=== PATIENT | male | born 1985 | race African-American/Black ===

== ENCOUNTER 2019-02-02 18:47 | Inpatient (IN) | payer OTHER ==
[2019-02-02 19:07] VITALS: BMI 29.8
--- NOTE | 2019-02-02 20:51 | HP ---
COWS - Scale Resting Pulse: 0= [place] 80 or Below Sweatin= Chills/Flushing Restless Observation: 1= Difficult to Sit Still Pupil Size: 0= Normal to Room Light Bone or Joint Aches: 1= Mild Discomfort Runny Nose/ Eye Tearin= Runny Nose/Eyes GI Upset > 30mins: 2= Nausea/Diarrhea Tremor Observation: 0= None Yawning Observation: 1= 1-2x During Session Anxiety or Irritability: 2=Irritable/Anxious Goose Flesh Skin: 0=Smooth Skin COWS Score: 10 CIWA Score - Admission Criteria [facility]ASAS Guidelines: Admission for Medically Managed Detox: Requires at least one of the followin. CIWA greater than 12 2. Seizures within the past 24 hours 3. Delirium tremens within the past 24 hours 4. Hallucinations within the past 24 hours 5. Acute intervention needed for co occurring medical disorder 6. Acute intervention needed for co occurring psychiatric disorder 7. Severe withdrawal that cannot be handled at a lower level of care (continued vomiting, continued diarrhea, abnormal vital signs) requiring intravenous medication and/or fluids 8. Admission [facility] Chief Complaint: C/O WITHDRAWAL SX'S Allergies/Adverse Reactions: Allergies Allergy/AdvReac Type Severity Reaction Status Date / Time No Known Allergies Allergy Verified 02/02/19 18:48 History of Present Illness: HERE FOR HEROIN DETOX. CLIENT WAS REFERRED BY [facility] AFTER PRESENTING THERE 1 DAY AGO FOR MENTAL HEALTH ISSUES. HE HAS SINCE BEEN CLEARED AND REFERRED HERE FOR DETOX. CLIENT REPORTS DAILY USE OF HEROIN. LAST USE 1 DAY AGO. PRESENTS NOW WITH C/O WITHDRAWAL SXS'.HX/O DRUG OVERDOSE X3. + HX/O SEIZURES R/T HEAD INJURY. LAST EPISODE 10/2018 ON [facility]. HE IS NOT COMPLIANT WITH HIS MEDICATION TO INCLUDE MENTAL HEALTH MEDS. DENIES IVDU, SI/HI, . REPORTS MOST RECENT CLEAN TIME 1 YEAR WHILE INCARCERATED. RELAPSING 10/2018. LIVES WITH FAMILY, UNEMPLOYED , DENIES LEGALS Exam Limitations: No Limitations - Ebola screening Have you traveled outside of the country in the last 21 days: No (N) Have you had contact with anyone from an Ebola affected area: No Do you have a fever: No - Review of Systems Constitutional: Chills, Night Sweats, Changes in sleep EENT: reports: Blurred Vision (CHRONIC/ USES EYE GLASSES), Nose Congestion, Dental Problems (MISSING TOOTH), Throat Pain (SORE), Other (HORSENESS) Respiratory: reports: Shortness of Breath (HX/O ASTHMA) Cardiac: reports: No Symptoms Reported GI: reports: Nausea, Abdominal cramping : reports: No Symptoms Reported Musculoskeletal: reports: Back Pain (CHRONIC, SCIATICA) Integumentary: reports: No Symptoms Reported Neuro: reports: Headache, Numbness, Seizure Endocrine: reports: No Symptoms Reported Hematology: reports: No Symptoms Reported Psychiatric: reports: Orientated x3, Agitated (IRRITBALE), Anxious, Depressed Other Systems: Reviewed and Negative Patient History - Patient Medical History Hx Anemia: No Hx Asthma: Yes Hx Chronic Obstructive Pulmonary Disease (COPD): No Hx Cancer: No Hx Cardiac Disorders: No Hx Congestive Heart Failure: No Hx Hypertension: No Hx Hypercholesterolemia: No Hx Pacemaker: No HX Cerebrovascular Accident: No Hx Seizures: Yes (NON COMPLIANT WITH MEDS) Hx Dementia: No Hx Diabetes: No Hx Gastrointestinal Disorders: Yes (PEPTIC ULCERS) Hx Liver Disease: No Hx Genitourinary Disorders: No Hx Sexually Transmitted Disorders: No Hx Renal Disease (ESRD): No Hx Thyroid Disease: No Hx Human Immunodeficiency Virus (HIV): No Hx Hepatitis C: No Hx Depression: Yes (NON COMPLIANT WITH MEDS) Hx Suicide Attempt: No Hx Bipolar Disorder: Yes (NON COMPLIANT WITH) Hx Schizophrenia: No Other Medical History: DENIES - Patient Surgical History Past Surgical History: Yes Hx Appendectomy: Yes (2013) Anesthesia Reaction: No - PPD History Previous Implant?: Yes Documented Results: Negative w/o proof Implanted On Prior [facility] Admission?: No PPD to be Administered?: Yes - Smoking Cessation Smoking history: Current every day smoker Have you smoked in the past 12 months: Yes Aproximately how many cigarettes per day: 20 Hx Chewing Tobacco Use: No Initiated information on smoking cessation: Yes 'Breaking Loose' booklet given: 02/02/19 - Substance & Tx. History Hx Alcohol Use: No Hx Substance Use: Yes Substance Use Type: Cocaine, Heroin, Marijuana Hx Substance Use Treatment: Yes ([facility]) - Substances abused Heroin Substance route: Inhalation Frequency: Daily Amount used: 6 bags Age of first use: 28 Date of last use: 02/01/19 Crack Substance route: Smoking Frequency: Daily Amount used: $150 Age of first use: 28 Date of last use: 02/01/19 Cocaine Substance route: Smoking Frequency: Daily Amount used: $150 Age of first use: 28 Date of last use: 02/01/19 Marijuana/Hashish Substance route: Smoking Frequency: Daily Amount used: DIME Age of first use: 13 Date of last use: 02/01/19 Admission Physical Exam [facility] - Vital Signs Vital Signs: Vital Signs - 24 hr 02/02/19 18:47 Temperature 98.7 F Pulse Rate 64 Respiratory 16 Rate Blood Pressure 123/85 - Physical General Appearance: Yes: Moderate Distress, Irritable, Sweating, Anxious, Other (PILORECTION) HEENTM: Yes: EOMI, Normocephalic, Normal Voice, SEAMUS, Pharynx Normal, Nasal Congestion, Muffled/Hoarse Voice Respiratory: Yes: Chest Non-Tender, Lungs Clear, Normal Breath Sounds, No Respiratory Distress, No Accessory Muscle Use Neck: Yes: No masses,lesions,Nodules, Supple, Trachea in good position Breast: Yes: Breasts Symetrical Cardiology: Yes: Regular Rhythm, Regular Rate, S1, S2 Abdominal: Yes: Normal Bowel Sounds, Non Tender, Soft Genitourinary: Yes: Within Normal Limits Back: Yes: Normal Inspection, Decreased Range of Motion (C/O PAIN) Musculoskeletal: Yes: full range of Motion, Gait Steady, Back pain (C/O) Extremities: Yes: Normal Capillary Refill, Normal Range of Motion, Non-Tender Neurological: Yes: Fully Oriented, Alert, Motor Strength 5/5, Depressed Affect Integumentary: Yes: Cold, Moist Lymphatic: Yes: Within Normal Limits - Diagnostic (1) Opioid dependence with withdrawal Current Visit: Yes Status: Acute (2) Cocaine dependence, uncomplicated Current Visit: Yes Status: Acute (3) Cannabis dependence, uncomplicated Current Visit: Yes Status: Acute (4) Nicotine dependence Current Visit: Yes Status: Acute Qualifiers: Nicotine product type: cigarettes Substance use status: uncomplicated Qualified Code(s): F17.210 - Nicotine dependence, cigarettes, uncomplicated (5) Depressed affect Current Visit: Yes Status: Acute (6) History of seizure Current Visit: Yes Status: Chronic (7) Non compliance w medication regimen Current Visit: Yes Status: Acute (8) Substance induced mood disorder Current Visit: Yes Status: Acute (9) Asthma Current Visit: Yes Status: Acute Cleared for Admission [facility] - Detox or Rehab [facility] Level of Care: Medically Managed Detox Regimen/Protocol: Methadone Claeared for Rehab Admission: No Breathalyzer - Breathalyzer Breathalyzer: 0 Urine Drug Screen - Test Device Lot number: [id number] Expiration date: 10/01/20 - Control Is test valid?: No - Results Drug screen NEGATIVE: No Urine drug screen results: THC-Marijuana, JUDITH-Cocaine, MOP-Opiates Inpatient Rehab Admission - Rehab Decision to Admit Inpatient rehab admission?: No
[2019-02-02] MEDS ORDERED: ACETAMINOPHEN 325 MG TABLET (FP) PO PRN ×2 (20:59)
[2019-02-02] MEDS ORDERED: NALOXONE HCL 0.4 MG/ML VIAL IM PRN (20:59)
[2019-02-02] MEDS ORDERED: MELATONIN 5 MG TABLETS PO PRN (20:59)
[2019-02-02] MEDS ORDERED: MENTHOL/PHENOL 1 EACH UD MM PRN (20:59)
[2019-02-02] MEDS ORDERED: IBUPROFEN 400 MG TABLET (FP) PO PRN (20:59)
[2019-02-02] MEDS ORDERED: cloNIDine HCL 0.1 MG TABLET PO PRN (20:59)
[2019-02-02] MEDS ORDERED: METHADONE HCL 10 MG TABLET (FOR DETOX USE ONLY) PO ONE (20:59)
[2019-02-02] MEDS ORDERED: ONDANSETRON *ODT* 4 MG TABLET SL PRN (20:59)
[2019-02-02] MEDS ORDERED: P-EPHED 60MG/TRIPROLIDI 2.5MG TABLET PO PRN (20:59)
[2019-02-02] MEDS ORDERED: MAGNESIUM CITRATE 300 ML BOTTLE PO PRN (20:59)
[2019-02-02] MEDS ORDERED: DICYCLOMINE HCL 10 MG CAPSULE PO PRN (20:59)
[2019-02-02] MEDS ORDERED: MAGNESIUM HYDROX 2400MG/30ML ORAL SUSPENSION 30 ML CUP PO PRN (20:59)
[2019-02-02] MEDS: THIAMINE HCL 100 MG TABLET (FP) PO SCH (22:10)
[2019-02-02] MEDS: BISMUTH SUBSALICYLATE 524 MG/30 ML UD PO PRN (22:13)
[2019-02-02] MEDS: METHOCARBAMOL 500 MG TABLET PO PRN (22:14)
[2019-02-02] MEDS: guaiFENesin 200 MG/10 ML 10 ML UNIT-DOSE CUPS PO PRN (22:29)
[2019-02-02] MEDS: levETIRAcetam XR 500 MG TAB PO SCH (22:30)
[2019-02-03] MEDS: hydrOXYzine PAMOATE 25 MG CAPSULE (FP) PO PRN (02:28)
[2019-02-03] MEDS ORDERED: METHADONE HCL 5 MG TABLET (FOR DETOX USE ONLY) ONE (09:19)
[2019-02-03] MEDS ORDERED: METHADONE HCL 10 MG TABLET (FOR DETOX USE ONLY) ONE (09:19)
[2019-02-03 09:53] LABS: HEMOGLOBIN 13.7 GM/dL (11.7-16.9); MCHC 32.7 g/dl (32.0-35.9); MEAN CELL VOLUME 79.5 fl (80-96); MEAN PLT VOLUME 9.8 fl (7.5-11.1); PLATELET COUNT 229 K/MM3 (134-434); RBC 5.29 M/mm3 (4.00-5.60); RDW 14.9 % (11.9-15.9); WHITE BLOOD COUNT 9.7 K/mm3 (4.0-10.0)
[2019-02-03] MEDS ORDERED: METHADONE (DETOX) 20 MG, METHADONE (DETOX) 5 MG PO ONE (10:00)
[2019-02-03] MEDS: PRENATAL VITAMINS W/ FOLIC ACID TABLET (FP) PO SCH (10:52)
[2019-02-03] MEDS: levETIRAcetam XR 500 MG TAB PO SCH ×2 (10:52→22:32)
[2019-02-03] MEDS: NICOTINE 21 MG/24 HOURS TOPICAL PATCH TD SCH (10:52)
[2019-02-03 10:58] LABS: ALBUMIN 3.4 g/dl (3.4-5.0); BILIRUBIN,TOTAL 0.3 mg/dL (0.2-1); BLOOD UREA NITROGEN 14.9 mg/dL (7-18); CALCIUM 8.9 mg/dL (8.5-10.1); CREATININE 1.2 mg/dL (0.55-1.3); POTASSIUM 3.9 mmol/L (3.5-5.1)
--- NOTE | 2019-02-03 11:36 | PN ---
BHS COWS - Scale Resting Pulse: 0= [place] 80 or Below Sweatin= Chills/Flushing Restless Observation: 1= Difficult to Sit Still Pupil Size: 0= Normal to Room Light Bone or Joint Aches: 2= Severe Diffuse Aches Runny Nose/ Eye Tearin= Nasal Congestion GI Upset > 30mins: 0= None Tremor Observation of Outstretched Hands: 1= Tremor [place], Not Seen Yawning Observation: 2= >3x During Session Anxiety or Irritability: 2=Irritable/Anxious Goose Flesh Skin: 0=Smooth Skin COWS Score: 10 BHS Progress Note (SOAP) Subjective: sweats shakes interrupted sleep body aches irritable Objective: 02/03/19 11:35 Vital Signs Temperature 97.0 F L 02/03/19 09:28 Pulse Rate 51 L 02/03/19 09:28 Respiratory Rate 16 02/03/19 09:28 Blood Pressure 138/62 02/03/19 09:28 O2 Sat by Pulse Oximetry (%) Laboratory Tests 02/03/19 02/03/19 07:45 07:45 WBC 9.7 RBC 5.29 Hgb 13.7 Hct 42.0 MCV 79.5 L MCH 26.0 MCHC 32.7 RDW 14.9 Plt Count 229 MPV 9.8 Sodium 139 Potassium 3.9 Chloride 104 Carbon Dioxide 31 Anion Gap 5 L BUN 14.9 Creatinine 1.2 Est GFR (CKD-EPI)AfAm 91.53 Est GFR (CKD-EPI)NonAf 78.97 Random Glucose 80 Calcium 8.9 Total Bilirubin 0.3 AST 25 ALT 25 Alkaline Phosphatase 78 Total Protein 7.0 Albumin 3.4 labs noted aaox3 ambulating no acute distress Assessment: 02/03/19 11:36 withdrawal sx Plan: continue detox increase fluids
--- NOTE | 2019-02-03 13:43 | CONSULT ---
[facility] Psychiatric Consult - Data Date of interview: 02/03/19 Admission source: [facility] Identifying data: First admission to [facility] for this 33 y/o AA male referred by [facility] for detoxification (GUERRERO issues : heroin, cocaine, cannabis, nicotine). Interviewed at [address] [place] [address]. Patient is , no biological children, homeless, unemployed and deprived of financial assistance (self-report). Substance Abuse History: Discussed in this session. Details concordant with current [facility] report as follows : Smoking history: Current every day smoker. Have you smoked in the past 12 months: Yes. Aproximately how many cigarettes per day: 20. Hx Chewing Tobacco Use: No. Initiated information on smoking cessation: Yes. 'Breaking Loose' booklet given: 02/02/19. - Substance & Tx. History. Hx Alcohol Use: No. Hx Substance Use: Yes. Substance Use Type: Cocaine, Heroin, Marijuana. Hx Substance Use Treatment: Yes ([facility]). - Substances abused. Heroin. Substance route: Inhalation. Frequency: Daily. Amount used: 6 bags. Age of first use: 28. Date of last use: 02/01/19. Crack. Substance route: Smoking. Frequency: Daily. Amount used: $150. Age of first use: 28. Date of last use: 02/01/19. Cocaine. Substance route: Smoking. Frequency: Daily. Amount used: $150. Age of first use: 28. Date of last use: 02/01/19. Marijuana/Hashish. Substance route: Smoking. Frequency : Daily. Amount used: DIME. Age of first use: 13. Date of last use: 02/01/19 Medical History: Medical profile is remarkable for seizure disorder, bronchial asthma, peptic ulcer disease and sciatica. Psychiatric History: No reported history of psychiatric hospitalizations. Patient states that he was diagnosed with MDD, Anxiety Disorder and PTSD ( during his incarceration). Medicated, in penitentiary, with celexa 50 mg/day + remeron 45 mg/hs + trazodone 100 mg/hs (self-report). Adherence remains questionable (last took these medications 3-5 days prior to this [facility] visit as per own account). Since October 2018, it appears that the patient has been to various treatment centers, including [facility] and [facility]. Mr Grover indicates that he does not have a regular psychiatric OPD care provider in the [facility] at this time. Patient denies history of suicide attempts. Physical/Sexual Abuse/Trauma History: Patient declines to discuss this domain. Additional Comment: Urine drug screen results: THC-Marijuana, JUDITH-Cocaine, MOP- Opiates. Noted. Mental Status Exam - Mental Status Exam Alert and Oriented to: Time, Place, Person Cognitive Function: Good Patient Appearance: Unkempt, Disheveled Mood: Nervous, Withdrawn, Irritable Affect: Mood Congruent, Blunted Patient Behavior: Fatigued, Cooperative (superficially cooperative) Speech Pattern: Clear Voice Loudness: Normal Thought Process: Goal Oriented Thought Disorder: Not Present Hallucinations: Denies Suicidal Ideation: Denies Homicidal Ideation: Denies Insight/Judgement: Poor Sleep: Poorly, Difficulty falling asleep (as per self-report) Gait/Station: Other (not observed; supine for duration of interview.) Psychiatric Findings - Problem List ([place] 1, 2,3) (1) Opioid dependence with withdrawal Current Visit: Yes Status: Acute (2) Cannabis dependence, uncomplicated Current Visit: Yes Status: Chronic (3) Cocaine dependence, uncomplicated Current Visit: Yes Status: Chronic (4) Nicotine dependence Current Visit: Yes Status: Chronic Qualifiers: Nicotine product type: cigarettes Substance use status: uncomplicated Qualified Code(s): F17.210 - Nicotine dependence, cigarettes, uncomplicated (5) Substance induced mood disorder Current Visit: Yes Status: Chronic (6) History of depression Current Visit: Yes Status: Chronic (7) Insomnia Current Visit: Yes Status: Chronic (8) Non-compliance Current Visit: Yes Status: Chronic - Initial Treatment Plan Initial Treatment Plan: Psychoeducation. Sleep hygiene. Detoxification. Medications resumed as : remeron 15 mg po hs + trazodone 100 mg po hs. Side effects/benefits of these medications are discussed with patient. Citalopram is withdrwan (until EKG results). Discussed with medical staff. Mr Grover is in agreement with this plan of care. Doses are reduced as caution for oversedation due to drug-drug interactions (polypharmacy). Verbal consent obtained from patient. NA meetings. Observation.
[2019-02-03] MEDS: guaiFENesin 200 MG/10 ML 10 ML UNIT-DOSE CUPS PO PRN (20:12)
[2019-02-03] MEDS: MAG HYDROX/AL HYDROX/SIMETH 30 ML UNIT-DOSE CUP PO PRN (20:14)
[2019-02-03] MEDS: traZODone HCL 100 MG TABLET (FP) PO SCH (22:31)
[2019-02-03] MEDS: METHOCARBAMOL 500 MG TABLET PO PRN (22:31)
[2019-02-03] MEDS: MIRTAZAPINE 15 MG TABLET (FP) PO SCH (22:31)
[2019-02-03] MEDS: THIAMINE HCL 100 MG TABLET (FP) PO SCH (22:32)
[2019-02-04] MEDS ORDERED: METHADONE HCL 10 MG TABLET (FOR DETOX USE ONLY) PO ONE (10:00)
[2019-02-04] MEDS: PRENATAL VITAMINS W/ FOLIC ACID TABLET (FP) PO SCH (10:17)
[2019-02-04] MEDS: NICOTINE 21 MG/24 HOURS TOPICAL PATCH TD SCH (10:18)
[2019-02-04] MEDS: levETIRAcetam XR 500 MG TAB PO SCH ×2 (10:18→22:06)
--- NOTE | 2019-02-04 16:42 | PN ---
BHS COWS - Scale Resting Pulse: 0= [place] 80 or Below Sweatin=Flushed/Facial Moisture Restless Observation: 3= Extraneous Movement Pupil Size: 0= Normal to Room Light Bone or Joint Aches: 2= Severe Diffuse Aches Runny Nose/ Eye Tearin= None GI Upset > 30mins: 2= Nausea/Diarrhea Tremor Observation of Outstretched Hands: 2= Slight Tremor Visible Yawning Observation: 0= None Anxiety or Irritability: 2=Irritable/Anxious Goose Flesh Skin: 0=Smooth Skin COWS Score: 13 BHS Progress Note (SOAP) Subjective: Anxious, sweating, chills, nausea, interrupted sleep Objective: 02/04/19 16:40 Last Vital Signs Temp Pulse Resp BP Pulse Ox 98.1 F 80 20 145/67 02/04/19 14:04 02/04/19 14:04 02/04/19 14:04 02/04/19 14:04 Elevated b/p: denies htn (on clonidine prn) Laboratory Tests 02/03/19 02/03/19 02/03/19 07:45 07:45 07:45 WBC 9.7 RBC 5.29 Hgb 13.7 Hct 42.0 MCV 79.5 L MCH 26.0 MCHC 32.7 RDW 14.9 Plt Count 229 MPV 9.8 Sodium 139 Potassium 3.9 Chloride 104 Carbon Dioxide 31 Anion Gap 5 L BUN 14.9 Creatinine 1.2 Est GFR (CKD-EPI)AfAm 91.53 Est GFR (CKD-EPI)NonAf 78.97 Random Glucose 80 Calcium 8.9 Total Bilirubin 0.3 AST 25 ALT 25 Alkaline Phosphatase 78 Total Protein 7.0 Albumin 3.4 RPR Titer Nonreactive Labs reviewed Assessment: 02/04/19 16:41 Withdrawal sxs Plan: Continue detox Encouraged PO water intake Elevated b/p: denies htn, most likely due to withdrawal, on clonidine prn, monitor b/p
[2019-02-04] MEDS: hydrOXYzine PAMOATE 25 MG CAPSULE (FP) PO PRN (18:27)
[2019-02-04] MEDS: guaiFENesin 200 MG/10 ML 10 ML UNIT-DOSE CUPS PO PRN (18:28)
[2019-02-04] MEDS: BISMUTH SUBSALICYLATE 524 MG/30 ML UD PO PRN (18:28)
[2019-02-04] MEDS: THIAMINE HCL 100 MG TABLET (FP) PO SCH (22:06)
[2019-02-04] MEDS: MIRTAZAPINE 15 MG TABLET (FP) PO SCH (22:06)
[2019-02-04] MEDS: traZODone HCL 100 MG TABLET (FP) PO SCH (22:06)
[2019-02-04] MEDS: METHOCARBAMOL 500 MG TABLET PO PRN (22:09)
[2019-02-04] MEDS: MAG HYDROX/AL HYDROX/SIMETH 30 ML UNIT-DOSE CUP PO PRN (22:10)
[2019-02-05] MEDS ORDERED: METHADONE HCL 10 MG TABLET (FOR DETOX USE ONLY) ONE (09:53)
[2019-02-05] MEDS ORDERED: METHADONE HCL 5 MG TABLET (FOR DETOX USE ONLY) ONE (09:53)
[2019-02-05] MEDS ORDERED: METHADONE (DETOX) 10 MG, METHADONE (DETOX) 5 MG PO ONE (10:00)
--- NOTE | 2019-02-05 10:11 | PN ---
BHS COWS - Scale Resting Pulse: 0= [place] 80 or Below Sweatin= Chills/Flushing Restless Observation: 1= Difficult to Sit Still Pupil Size: 0= Normal to Room Light Bone or Joint Aches: 2= Severe Diffuse Aches Runny Nose/ Eye Tearin= Nasal Congestion GI Upset > 30mins: 0= None Tremor Observation of Outstretched Hands: 1= Tremor [place], Not Seen Yawning Observation: 1= 1-2x During Session Anxiety or Irritability: 2=Irritable/Anxious Goose Flesh Skin: 0=Smooth Skin COWS Score: 9 BHS Progress Note (SOAP) Subjective: shakes sweats interrupted sleep agitation irritable body aches Objective: 02/05/19 10:10 Vital Signs Temperature 96.6 F L 02/05/19 09:27 Pulse Rate 62 02/05/19 09:27 Respiratory Rate 16 02/05/19 09:27 Blood Pressure 128/87 02/05/19 09:27 O2 Sat by Pulse Oximetry (%) Laboratory Tests 02/03/19 02/03/19 02/03/19 07:45 07:45 07:45 WBC 9.7 RBC 5.29 Hgb 13.7 Hct 42.0 MCV 79.5 L MCH 26.0 MCHC 32.7 RDW 14.9 Plt Count 229 MPV 9.8 Sodium 139 Potassium 3.9 Chloride 104 Carbon Dioxide 31 Anion Gap 5 L BUN 14.9 Creatinine 1.2 Est GFR (CKD-EPI)AfAm 91.53 Est GFR (CKD-EPI)NonAf 78.97 Random Glucose 80 Calcium 8.9 Total Bilirubin 0.3 AST 25 ALT 25 Alkaline Phosphatase 78 Total Protein 7.0 Albumin 3.4 RPR Titer Nonreactive labs noted aaox3 ambulating no acute distress Assessment: 02/05/19 10:11 withdrawals Plan: continue detox increase fluids
[2019-02-05] MEDS: NICOTINE 21 MG/24 HOURS TOPICAL PATCH TD SCH (10:49)
[2019-02-05] MEDS: PRENATAL VITAMINS W/ FOLIC ACID TABLET (FP) PO SCH (10:50)
--- NOTE | 2019-02-05 11:04 | EKG ---
Test Reason : Blood Pressure : / mmHG Vent. Rate : 049 BPM Atrial Rate : 049 BPM P-R Int : 144 ms QRS Dur : 088 ms QT Int : 422 ms P-R-T Axes : 060 014 005 degrees QTc Int : 381 ms SINUS BRADYCARDIA OTHERWISE NORMAL ECG WHEN COMPARED WITH ECG OF 02-FEB-2019 21:24, QT HAS SHORTENED Confirmed by BLU ANDREWS MD ([id number]) on 02/05/2019 11:04:12 AM Referred By: Confirmed By:BLU ANDREWS MD
[2019-02-05] MEDS: levETIRAcetam XR 500 MG TAB PO SCH (11:28)
[2019-02-05] MEDS ORDERED: MELATONIN 5 MG TABLETS PO PRN (22:00)
[2019-02-06] MEDS: traZODone HCL 100 MG TABLET (FP) PO SCH (00:03)
[2019-02-06] MEDS: levETIRAcetam XR 500 MG TAB PO SCH ×2 (00:03→10:15)
[2019-02-06] MEDS: MIRTAZAPINE 15 MG TABLET (FP) PO SCH (00:03)
[2019-02-06] MEDS: THIAMINE HCL 100 MG TABLET (FP) PO SCH (00:03)
[2019-02-06 09:32] VITALS: TEMP 98.1
[2019-02-06 09:33] VITALS: BP 131/75; PULSE 92
--- NOTE | 2019-02-06 09:57 | PN ---
BHS COWS - Scale Resting Pulse: 0= [place] 80 or Below Sweatin= No chills or Flushing Restless Observation: 0= Sits Still Pupil Size: 0= Normal to Room Light Bone or Joint Aches: 1= Mild Discomfort Runny Nose/ Eye Tearin= None GI Upset > 30mins: 0= None Tremor Observation of Outstretched Hands: 0= None Yawning Observation: 0= None Anxiety or Irritability: 1=Feels Anxious/Irritable Goose Flesh Skin: 0=Smooth Skin COWS Score: 2 BHS Progress Note (SOAP) Subjective: alert,no complaint Objective: 02/06/19 09:55 Vital Signs Temperature 98.1 F 02/06/19 09:30 Pulse Rate 92 H 02/06/19 09:30 Respiratory Rate 17 02/06/19 09:30 Blood Pressure 131/75 02/06/19 09:30 O2 Sat by Pulse Oximetry (%) Assessment: 02/06/19 09:55 stable for discharge Plan: discharge today,follow up with [facility] re[facility]
[2019-02-06] MEDS ORDERED: METHADONE HCL 10 MG TABLET (FOR DETOX USE ONLY) PO ONE (10:00)
--- NOTE | 2019-02-06 10:02 | DS ---
[facility] Detox Discharge Summary Admission Date: 02/02/19 Discharge Date: 02/06/19 - History Present History: Cannabis Dependence, Cocaine Dependence, Opioid Dependence Additional Comments: follow with after care program [facility] as arrangement Pertinent Past History: nicotine dependence asthma history of seizure - Physical Exam Results Vital Signs: Vital Signs Temperature 98.1 F 02/06/19 09:30 Pulse Rate 92 H 02/06/19 09:30 Respiratory Rate 17 02/06/19 09:30 Blood Pressure 131/75 02/06/19 09:30 O2 Sat by Pulse Oximetry (%) Pertinent Admission Physical Exam Findings: withdrawal signs and symptom - Treatment Hospital Course: Detox Protocol Followed, Detoxed Safely, Responded well, Discharged Condition Good, Rehab Referral Accepted Patient has Accepted a Rehab Referral to: [facility] - Medication Discharge Medications: Ambulatory Orders Citalopram Hydrobromide [Celexa -] 50 mg PO DAILY 02/02/19 Mirtazapine [Remeron -] 45 mg PO HS 02/02/19 levETIRAcetam [Keppra Xr -] 1,000 mg PO BID 02/02/19 traZODone HCL [Trazodone HCl] 100 mg PO HS 02/02/19 - Diagnosis (1) Opioid dependence with withdrawal Current Visit: Yes Status: Acute (2) Asthma Current Visit: Yes Status: Acute (3) Cannabis dependence, uncomplicated Current Visit: Yes Status: Chronic (4) Cocaine dependence, uncomplicated Current Visit: Yes Status: Chronic (5) History of seizure Current Visit: Yes Status: Chronic - AMA Did Patient Leave Against Medical Advice: No
[2019-02-06] MEDS: PRENATAL VITAMINS W/ FOLIC ACID TABLET (FP) PO SCH (10:14)
--- NOTE | 2019-02-06 19:52 | PN ---
[facility] Progress Note Note: Psychiatry Attending's note (delayed) : Came earlier to unit to answer request for a psychiatric follow-up. Patient not found. Mr Grover had already left the unit. Chart reviewed. Mr Grover is discharged today as per progress notes. Citalopram was not resumed (no justification for THREE antidepressant drugs). In addition, the patient had admitted to weeks of non-adherence to his medications. No recent report of OPD care. Care will resume at his rehabilitation program in the community.
[2019-02-07] MEDS ORDERED: METHADONE HCL 5 MG TABLET (FOR DETOX USE ONLY) PO ONE (06:00)
== END 2019-02-06 10:42 | disposition home or self-care (01) | DRG 773 ==
LOC: YASAS 18:47 → Y6N 20:53
PROVIDERS: ADMIT Allergy & Immunology; ATTEND Allergy & Immunology
PROC: HZ2ZZZZ Detoxification Services for Substance Abuse Treatment (ICD-10-PCS; principal; 2019-02-02)
DX: F11.23 Opioid dependence with withdrawal (principal); F14.20 Cocaine dependence, uncomplicated; F12.20 Cannabis dependence, uncomplicated; F17.210 Nicotine dependence, cigarettes, uncomplicated; F19.24 Other psychoactive substance dependence with psychoactive substance-induced mood disorder; F32.9 Major depressive disorder, single episode, unspecified; J45.909 Unspecified asthma, uncomplicated; G47.00 Insomnia, unspecified; R03.0 Elevated blood-pressure reading, without diagnosis of hypertension; Z91.14 Patient's other noncompliance with medication regimen; Z86.69 Personal history of other diseases of the nervous system and sense organs; Z56.0 Unemployment, unspecified
CPT/HCPCS: 36415; 80053; 80177; 85027; 86593; 93005; 93010